=== PATIENT | male | born 1945 | race Caucasian/White ===

== ENCOUNTER 2020-07-08 22:29 | Inpatient (IN) | payer OTHER ==
[~2020-07-08] VITALS: Ht 177.8 cm; Wt 76.7 kg
[2020-07-08] MEDS ORDERED: OLANZAPINE 10 MG VIAL IM ONE ×2 (22:41→22:45)
[2020-07-08] MEDS ORDERED: DUTA0.5C PO (22:49)
[2020-07-08] MEDS ORDERED: ALFU10TA10 PO (22:49)
--- NOTE | 2020-07-08 23:23 | NUR ---
report given to MAGDY weber
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
[2020-07-08] MEDS ORDERED: BLOOD SUGAR DIAGNOSTIC 1 EACH STRIP VI ONE (23:45)
[2020-07-08] MEDS ORDERED: MAGNESIUM HYDROXIDE 30 ML LIQUID UDC PO PRN (23:45)
[2020-07-08] MEDS ORDERED: MAG HYDROX/AL HYDROX/SIMETH 30 ML LIQUID UDC PO PRN (23:45)
--- NOTE | 2020-07-08 23:45 | NUR ---
Pt. admitted to [facility] Room 140A , under care of Dr. Lees/[employer] Belongs List completed. All belongings with pt A/Ox1. in stable condition no s/s of distress transported via gurney
[2020-07-08] MEDS: TEMAZEPAM 7.5 MG CAPSULE PO PRN (23:54)
--- NOTE | 2020-07-09 00:45 | NUR ---
PATIENT NOTED RESTLESS, FIDGETING, CONSTANTLY MOVING IN HIS BED AND UNABLE TO FALL ASLEEP. ATIVAN 1MG PO PRN WAS OFFERED BUT PT REFUSED. WILL CONTINUE TO MONITOR. Addendum: 07/10/20 at 0300 by MIKALA BARNETT RN WRONG TIME. PLEASE DISREGARD NOTE.
[2020-07-09] MEDS: LORAZEPAM 1 MG TABLET PO PRN ×3 (02:04→14:16)
[2020-07-09 07:30] VITALS: BP 139/87
--- NOTE | 2020-07-09 07:45 | NUR ---
Patient received by the nurse's station sitting on a anne-chair, No acute distress noted. Patient is AAO x 1, verbal but speech is unclear. Patient is calm at this time. Vital signs stable and will continue with care.
[2020-07-09 07:58] LABS: BILIRUBIN,TOTAL 0.9 mg/dL (0.2-1.0); CREATININE 1.2 mg/dL (0.6-1.3); POTASSIUM 4.2 mmol/L (3.5-5.1); TOTAL PROTEIN, SERUM 7.8 g/dL (6.4-8.2)
--- NOTE | 2020-07-09 08:00 | NUR ---
Patient noted with a skin tear on left arm and open to air. Patient also with dressing in place on right arm. will continue to care.
--- NOTE | 2020-07-09 09:40 | NUR ---
Patient noted very restless, fidgety, trying to get out of anne-chair and hitting and trying to get rid of table. Ativan 1mg 1 tab PO administered as ordered and tolerated well.
--- NOTE | 2020-07-09 10:30 | NUR ---
Patient sitting on anne-chair calm and in the activity room at this time. Patient unable to participate but attends activities.
[2020-07-09] MEDS ORDERED: SULF1TAB48 PO (11:41)
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
[2020-07-09 16:00] VITALS: BP 131/81
--- NOTE | 2020-07-09 18:50 | NUR ---
Left hand cleansed with NS pat dry and covered with dressing. will continue with care.
--- NOTE | 2020-07-09 20:00 | NUR ---
Received patient in the hallway sitting in a anne chair. He is noted confused, fidgeting, unable to have a meaningful conversation with this sports book writer. he is compliant with medication regiment at this time. V/S stable. Safety and fall precautions in place. will continue to monitor.
[2020-07-09] MEDS: risperiDONE 0.5 MG TABLET PO SCH (20:17)
[2020-07-09] MEDS: SULFAMETH/TRIMETH 800/160 MG TABLET PO SCH (20:17)
[2020-07-09] MEDS: RIVASTIGMINE TARTRATE 1.5 MG CAPSULE PO SCH (20:17)
[2020-07-09] MEDS: DUTASTERIDE 0.5 MG CAPSULE PO SCH (20:18)
[2020-07-09] MEDS: ALFUZOSIN HCL 10 MG TAB.SR.24H PO SCH (20:18)
[2020-07-09 20:21] VITALS: BP 127/80
[2020-07-09] MEDS: TEMAZEPAM 7.5 MG CAPSULE PO PRN (22:29)
--- NOTE | 2020-07-09 22:30 | NUR ---
Patient noted restless, fidgeting, taking his gown off and unable to fall asleep. Temazepam 7.5mg PO PRN was given. will continue to monitor.
[2020-07-10] MEDS: LORAZEPAM 1 MG TABLET PO PRN ×2 (00:11→12:14)
--- NOTE | 2020-07-10 00:45 | NUR ---
PATIENT NOTED RESTLESS, FIDGETING, CONSTANTLY MOVING IN HIS BED AND UNABLE TO FALL ASLEEP. ATIVAN 1MG PO PRN WAS OFFERED BUT PT REFUSED. WILL CONTINUE TO MONITOR.
--- NOTE | 2020-07-10 07:01 | NUR ---
patient slept for approx. 3.30 hrs through the night. He is noted less combative, less fidgeting, less irritable at this time. will continue to monitor.
[2020-07-10 07:30] VITALS: BP 99/59
--- NOTE | 2020-07-10 08:00 | NUR ---
Patient received by the nurse's station sitting on a anne-chair, NO acute distress noted. Calm at this time. Vital signs stable for patient. Safety measures in place and will continue with care.
[2020-07-10] MEDS: DIVALPROEX 250 MG TABLET.DR PO SCH ×3 (08:31→13:38)
[2020-07-10] MEDS: SULFAMETH/TRIMETH 800/160 MG TABLET PO SCH ×2 (08:31→20:11)
[2020-07-10] MEDS: RIVASTIGMINE TARTRATE 1.5 MG CAPSULE PO SCH ×2 (08:31→20:11)
[2020-07-10] MEDS: risperiDONE 0.5 MG TABLET PO SCH ×2 (08:31→20:11)
--- NOTE | 2020-07-10 10:10 | NUR ---
Patient was able to take all due morning medications crushed with pudding. Patient able to express feelings at times but very confused with fragmented thoughts. patient also noted being fidgety at times and uncontrolled movements of the hands. Patient calling on 's name. Called patient's and patient was able to talk with . Monitored closely. Patient also attended group therapy and activities but with minimal participation. Safety measures in place and will continue with care.
--- NOTE | 2020-07-10 12:30 | NUR ---
Patient very fidgety unable to feed lunch at this time; patient noted being very restless, anxious and moving hands everywhere uncontrollably. Patient also noted with delusional thoughts stating "my is here". Ativan 1 mg PO q 4HRS PRN administered and tolerated well. Safety measures in place and will continue to monitor.
--- NOTE | 2020-07-10 13:33 | NUR ---
Patient still very restless moving anne-chair on the hallway and trying to get up. Patient very confused and with delusional thoughts. Patient monitored closely and reoriented to situation. Will continue with care.
--- NOTE | 2020-07-10 13:52 | NUR ---
Patient refused 1PM Depakote order. Patient very fidgety and unable to administer medication; patient also pushing meds away while trying to administer. Will continue with care.
[2020-07-10 16:00] VITALS: BP 117/64
[2020-07-10] MEDS: DIVALPROEX SPRINKLE 125 MG CAP.SPRINK PO SCH ×2 (17:00→20:11)
--- NOTE | 2020-07-10 18:20 | NUR ---
Patient is calm and sleeping at this time, NO acute distress. will continue with care.
[2020-07-10] MEDS: DUTASTERIDE 0.5 MG CAPSULE PO SCH (20:10)
[2020-07-10] MEDS: ALFUZOSIN HCL 10 MG TAB.SR.24H PO SCH (20:11)
[2020-07-10 20:21] VITALS: BP 134/85
[2020-07-10] MEDS: TEMAZEPAM 7.5 MG CAPSULE PO PRN (22:23)
[2020-07-11 07:30] VITALS: BP 100/62
--- NOTE | 2020-07-11 09:15 | NUR ---
LAURA Initial Discharge Plan: Patient currently lives at home [address] [place] [address], lives with , Caroline ([phone]). Patient will return back home when ready for discharge. LAURA called patient's at this time, however unable to reach and left a voicemail for a return call. LAURA will continue to work with patient, family, and MD to ensure a safe and proper discharge plan.
--- NOTE | 2020-07-11 09:16 | NUR ---
SW Family Contact: SW attempted to call patient's , Caroline ([phone]), unable to reach at this time and left a voicemail for a return call to discuss treatment and discharge plan.
[2020-07-11] MEDS: SULFAMETH/TRIMETH 800/160 MG TABLET PO SCH ×2 (10:48→20:37)
[2020-07-11] MEDS: DIVALPROEX SPRINKLE 125 MG CAP.SPRINK PO SCH ×3 (10:48→20:37)
[2020-07-11] MEDS: risperiDONE 0.5 MG TABLET PO SCH ×2 (10:48→20:37)
[2020-07-11] MEDS: RIVASTIGMINE TARTRATE 1.5 MG CAPSULE PO SCH ×2 (10:48→20:37)
[2020-07-11] MEDS: Z GUARD REMEDY PASTE 57 GM TUBE TOP SCH ×2 (10:58→20:37)
--- NOTE | 2020-07-11 13:59 | NUR ---
Patient is sitting in chair in hallway. He is anxious, restless, and refusing care from staff. Patient attempts to swat at staff when they get near him. Patient was compliant with medications, no adverse reaction noted. Patient is seen speaking to unknown others and performing waving hand gestures in the air. He frequently calls out for his and speaks to her despite the fact that she is not physically present. Patient is unable to participate in meaningful conversation with staff. He requires frequent redirection and reality orientation. Impulse control reinforced multiple times.
[2020-07-11 16:00] VITALS: BP 138/72
--- NOTE | 2020-07-11 16:51 | NUR ---
This lead technical writer spoke with patient's , Caroline. Patient's is concerned over the patient "being too drowsy and not talking like himself." stated that this is not patient's baseline communication or behavior, that at home he is "a normal person" and can have a logical conversation. Patient's stated that he has had Alzheimer's disease for 6 years, but the patient decided not to take medication because "it will only prolong his life by 6 months." Patient's states that the patient self medicates at home with medical marijuana edibles (about 30 mg daily) to help with his behavior. Patient's stated that she does not like that he is receiving the current medications of Depakote Sprinkles and Risperdal, and that she does not want him to be receiving Ativan. She stated that she had hoped he would get "something to take the edge off the " but that these medications are too much. Patient's also stated that after discharge, she plans to take the patient to his primary care physician to revise his discharge medication list. Patient's was educated about Depakote and Risperdal, doses, indications, and potential adverse reactions. She was advised not to suddenly stop taking the medication without the oversight and recommendation of a physician due to potential negative side effects.
[2020-07-11 20:00] VITALS: BP 118/66
[2020-07-11] MEDS: DUTASTERIDE 0.5 MG CAPSULE PO SCH (20:36)
[2020-07-11] MEDS: ALFUZOSIN HCL 10 MG TAB.SR.24H PO SCH (20:37)
[2020-07-11] MEDS: TEMAZEPAM 7.5 MG CAPSULE PO PRN (21:28)
--- NOTE | 2020-07-12 06:17 | NUR ---
Patient was confused , forgetful and difficult to have conversation with last night. Incontinent of urine and unsteady. This am, the patient was more talkative and was able to answer simple yes and no questions and said "Thank You". Assisted patient to bathroom and ambulated patient with caution. Patient needs help to eat and drink.Food and fluids provided to patient. Monitoring for safety. No distress at this time.
[2020-07-12 07:30] VITALS: BP 103/73
[2020-07-12] MEDS: RIVASTIGMINE TARTRATE 1.5 MG CAPSULE PO SCH ×2 (08:06→20:17)
[2020-07-12] MEDS: DIVALPROEX SPRINKLE 125 MG CAP.SPRINK PO SCH ×3 (08:06→20:18)
[2020-07-12] MEDS: SULFAMETH/TRIMETH 800/160 MG TABLET PO SCH ×2 (08:06→20:17)
[2020-07-12] MEDS: risperiDONE 0.5 MG TABLET PO SCH ×2 (08:06→20:17)
[2020-07-12] MEDS: Z GUARD REMEDY PASTE 57 GM TUBE TOP SCH ×2 (09:39→20:18)
--- NOTE | 2020-07-12 09:42 | NUR ---
Firearms Report: Preboarder completed and submitted a [employer] firearms report for 5250 grave disability certification. A copy of report has been placed in patient chart.
[2020-07-12] MEDS: ACETAMINOPHEN 325 MG TABLET PO PRN (12:38)
[2020-07-12] MEDS: LORAZEPAM 1 MG TABLET PO PRN (12:38)
--- NOTE | 2020-07-12 14:20 | NUR ---
LAURA Family Contact: SW spoke with patient's , Caroline ([phone]) regarding patient's discharge and treatment plan. Caroline stated that she wants the patient back home when he is ready for discharge and will pick him up at discharge. Caroline expressed some concerns about the patient "does not have a psychotic illness". This journalists and other writers educated Caroline about the patient having Alzheimer's and behavior issues. Caroline provided this journalists and other writers with the patient's primary doctor, Dr. Kyrie Quesada [address] [place] [id number] ([phone]).
[2020-07-12 16:00] VITALS: BP 121/63
--- NOTE | 2020-07-12 18:00 | NUR ---
Received patient up to Paige-chair ,confuse and disoriented , agitated and restless Ativan 1mg as PRN given.total care to all ADLS.assisted to go to restroom ,keep skin dry and clean at all time.
[2020-07-12] MEDS: ALFUZOSIN HCL 10 MG TAB.SR.24H PO SCH (20:17)
[2020-07-12] MEDS: DUTASTERIDE 0.5 MG CAPSULE PO SCH (20:17)
[2020-07-12 20:37] VITALS: BP 145/74
[2020-07-12] MEDS: TEMAZEPAM 7.5 MG CAPSULE PO PRN (21:52)
--- NOTE | 2020-07-13 04:22 | NUR ---
GPS/ Pt received in ervin chair, Pt is still very confuse and unable to make any need known. Very poor insight and not able to converse with staffs. Routine medications given as order. By 2149 pt was trying to get out of chair with increase activity and restless. PRN sleeping aid given and monitor. At this time pt asleep with even breathing. Will continue close monitor and kept safe.
[2020-07-13 07:30] VITALS: BP 119/69
[2020-07-13] MEDS: SULFAMETH/TRIMETH 800/160 MG TABLET PO SCH ×2 (08:47→20:19)
[2020-07-13] MEDS: DIVALPROEX SPRINKLE 125 MG CAP.SPRINK PO SCH ×3 (08:47→20:19)
[2020-07-13] MEDS: risperiDONE 0.5 MG TABLET PO SCH ×2 (08:48→20:19)
[2020-07-13] MEDS: RIVASTIGMINE TARTRATE 1.5 MG CAPSULE PO SCH ×2 (08:48→20:20)
[2020-07-13] MEDS: Z GUARD REMEDY PASTE 57 GM TUBE TOP SCH ×2 (09:20→20:31)
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
[2020-07-13] MEDS: LORAZEPAM 1 MG TABLET PO PRN (14:50)
[2020-07-13 16:00] VITALS: BP 121/67
[2020-07-13] MEDS: ALFUZOSIN HCL 10 MG TAB.SR.24H PO SCH (20:19)
[2020-07-13] MEDS: DUTASTERIDE 0.5 MG CAPSULE PO SCH (20:20)
[2020-07-13 21:51] VITALS: BP 111/63
--- NOTE | 2020-07-13 23:00 | NUR ---
Patient noted restless, fidgeting, unable to fall asleep. temazepam 7.5mg PO PRN was given. will continue to monitor.
[2020-07-13] MEDS: TEMAZEPAM 7.5 MG CAPSULE PO PRN (23:05)
[2020-07-14 07:30] VITALS: BP 124/60
[2020-07-14] MEDS: DIVALPROEX SPRINKLE 125 MG CAP.SPRINK PO SCH ×3 (09:56→20:02)
[2020-07-14] MEDS: RIVASTIGMINE TARTRATE 1.5 MG CAPSULE PO SCH ×2 (09:56→20:01)
[2020-07-14] MEDS: SULFAMETH/TRIMETH 800/160 MG TABLET PO SCH (09:56)
[2020-07-14] MEDS: risperiDONE 0.5 MG TABLET PO SCH ×2 (09:56→20:01)
--- NOTE | 2020-07-14 10:07 | NUR ---
LAURA UR Note: Authorization #[id number] LAURA spoke with Sarah Alvarado case management specialist at [facility] ([phone]) who requested this senior copywriter to provide clinical information on her confidential voicemail. This senior copywriter left clinical updated information on Sarah Alvarado's voicemail and is waiting for a call back after she reviews for continued authorization.
[2020-07-14] MEDS: Z GUARD REMEDY PASTE 57 GM TUBE TOP SCH ×2 (10:17→20:02)
--- NOTE | 2020-07-14 11:41 | NUR ---
Gps/Entry Engineer- Remains up on his anne-chair by the Nurses station, monitoring his needs, prompted to take his routine am meds. , instructed to keep his eye open when intercting with staff. Monitored safety
--- NOTE | 2020-07-14 11:52 | NUR ---
SW Discharge Planning: This health underwriter called the following psychiatrists for outpatient mental health services: Dr. Menjivar [facility] [place] [address] ([phone]) unable to reach. Dr. Iverson Federico [address] [place] [address] ([phone]), not accepting new patient's. Dr. Kwabena Anaya [address] [facility] [address] [place] [address] ([phone]), not accepting new patient's. [facility] ([phone]), not accepting [facility] Insurance.
--- NOTE | 2020-07-14 12:17 | NUR ---
LAURA UR Note: Authorization #[id number] LAURA spoke with Sarah Alvarado case management social worker at [facility] ([phone]) who reviewed the clinicals sent earlier and stated that the patient is authorized for further treatment in the hospital and review due on Saturday07/18/2020.
--- NOTE | 2020-07-14 12:45 | NUR ---
LAURA Coordination of Care: LAURA called and left a voicemail to [facility] Discharge Planning ([phone]) and requested a list of outpatient psychiatrists.
[2020-07-14] MEDS: LORAZEPAM 1 MG TABLET PO PRN ×2 (13:00→23:09)
[2020-07-14 16:00] VITALS: BP 112/72
--- NOTE | 2020-07-14 17:36 | NUR ---
Gps/Industrial Organization Manager- Patient is constipated, prune juices was offered today, MOM 30 ml was also given, toileted w/ poor results, fluids offered.
[2020-07-14 20:00] VITALS: BP 114/68
--- NOTE | 2020-07-14 20:00 | NUR ---
Received patient in the hallway, he is sitting in a yessy chair closed to the nursing station: patient is noted awake. continue confused, disorganized speech. pt is unable to have a meaningful conversation with this comic book writer. Mood is irritable. affect is flat. V/S stable. pt was given PO fluids and snacks. safety and fall precaution in place. will continue to monitor.
[2020-07-14] MEDS: ALFUZOSIN HCL 10 MG TAB.SR.24H PO SCH (20:01)
[2020-07-14] MEDS: DUTASTERIDE 0.5 MG CAPSULE PO SCH (20:01)
[2020-07-14] MEDS: TEMAZEPAM 7.5 MG CAPSULE PO PRN (21:13)
[2020-07-14] MEDS: SIMVASTATIN 10 MG TABLET PO SCH (21:13)
[2020-07-15 07:30] VITALS: BP 121/59
[2020-07-15] MEDS: RIVASTIGMINE TARTRATE 1.5 MG CAPSULE PO SCH ×2 (08:59→20:10)
[2020-07-15] MEDS: risperiDONE 0.5 MG TABLET PO SCH ×2 (08:59→20:10)
[2020-07-15] MEDS: DIVALPROEX SPRINKLE 125 MG CAP.SPRINK PO SCH ×3 (08:59→20:10)
[2020-07-15] MEDS: Z GUARD REMEDY PASTE 57 GM TUBE TOP SCH ×2 (09:00→20:10)
[2020-07-15 10:05] LABS: BASOPHILS % (AUTO) 0.4 % (0.0-2.0); EOSINOPHILS # (AUTO) 0.2 K/uL (0.0-0.7); EOSINOPHILS % (AUTO) 3.2 % (0.0-7.0); HEMATOCRIT 39.3 % (36.7-47.1); HEMOGLOBIN 13.3 g/dL (12.5-16.3); LYMPHOCYTES # (AUTO) 1.2 K/uL (20.0-40.0); LYMPHOCYTES % (AUTO) 17.4 % (20.5-51.5); MEAN CORPUSCULAR HGB CONC 34 g/dL (32.5-36.3); MEAN CORPUSCULAR VOLUME 91.5 fL (73.0-96.2); MONOCYTES # (AUTO) 0.8 K/uL (2.0-10.0); MONOCYTES % (AUTO) 11.1 % (0.0-11.0); NEUTROPHILS # (AUTO) 4.8 K/uL (1.8-8.9); NEUTROPHILS % (AUTO) 67.9 % (38.5-71.5); PLATELET COUNT (AUTO) 159 K/uL (152-348); WHITE BLOOD COUNT (AUTO) 7.1 K/uL (3.6-10.2)
[2020-07-15 10:06] LABS: ALANINE AMINOTRANSFERASE 42 U/L (16-63); ALKALINE PHOSPHATASE 53 U/L (50-136); ASPARTATE AMINOTRANSFERASE 42 U/L (15-37); BILIRUBIN,TOTAL 0.9 mg/dL (0.2-1.0); CARBON DIOXIDE 27 mmol/L (21-32); CHLORIDE 109 mmol/L (98-107); CREATININE 1.4 mg/dL (0.6-1.3); GLUCOSE 113 mg/dL (74-106); MAGNESIUM 2.6 mg/dL (1.8-2.4); PHOSPHOROUS 3.6 mg/dL (2.5-4.9); POTASSIUM 4.2 mmol/L (3.5-5.1); TOTAL PROTEIN, SERUM 6.9 g/dL (6.4-8.2); UREA NITROGEN, BLOOD 41 mg/dL (7-18); VALPROIC ACID 51 ug/mL (50-100)
--- NOTE | 2020-07-15 10:30 | NUR ---
Gps/Quality Control Supervisor- Gets restless, fidgety , climbed of of bed. Kept patient on his anne-chair by the Nurses station for safety. Confused, disoriented, safety emphasized. Addendum: 07/15/20 at 1246 by SHEMAR DANG LVN Error in charting wrong patient
[2020-07-15] MEDS: LORAZEPAM 1 MG TABLET PO PRN ×2 (12:07→21:07)
--- NOTE | 2020-07-15 12:47 | NUR ---
Gps/Feli- Ruthie Seay SW -Adult Protective Services called, from [facility] ,wants to know discharge plan and progress of the patient , per 's request , informed no set discharge at this time.
--- NOTE | 2020-07-15 14:46 | NUR ---
Gps/Hat Stock Laminating Machine Operator- Caroline() called wants to know progress pf the patient, asking about his behavior informed was given ativan 1 mg po. this pm, r/t restlessness, disrobing, banging table , per " i dont want anybody giving him ativan , its been written all over not to give" . Informed will have Psychiatrist talk to her.
[2020-07-15 16:01] VITALS: BP 120/76
--- NOTE | 2020-07-15 16:06 | NUR ---
LAURA Family Contact: At 1:00pm SW spoke with pts , Caroline ([phone]) regarding outpatient psychiatric services. Caroline initially refused and stated that the patient will follow up with his primary care physician [place] [address] ([phone]). This comic writer educated Caroline regarding the importance of the patient seeing a psychiatrist in addition to his primary physician and she seemed to understand. At 3:30pm SW received a call back from pt's , Caroline who stated that she spoke with Dr. Quesada who agreed to manage the patient's psychotropic medications, and also advised that [facility] has a behavioral health portion, which would be her preference for the patients outpatient treatment. This comic writer called [facility] [address] [place] [address] ([phone]), and spoke with Candie, who stated that the patient would need to be seen by his primary physician and he would refer the pt for psychiatry and pt. would be assigned a psychiatrist. This comic writer informed Caroline of this process and she was agreeable and stated she "feels more comfortable" with this rather than a psychiatrist not associated with Dr. Quesada's clinic. LAURA made the next available appointment for the patient to follow up with Dr. Quesada ([phone]) on July 26, 2020 at 10am and requested the referral for psychiatry upon follow up.
[2020-07-15 20:00] VITALS: BP 124/75
[2020-07-15] MEDS: DUTASTERIDE 0.5 MG CAPSULE PO SCH (20:09)
[2020-07-15] MEDS: SIMVASTATIN 10 MG TABLET PO SCH (20:10)
[2020-07-15] MEDS: ALFUZOSIN HCL 10 MG TAB.SR.24H PO SCH (20:10)
[2020-07-15] MEDS: TEMAZEPAM 7.5 MG CAPSULE PO PRN (22:56)
--- NOTE | 2020-07-16 03:53 | NUR ---
GPS/ Pt was received sitting by nursing station in [facility]. Pt is disorganized, confuse and poor insight with no recognition to place, person and time. Pt was restless, unable to communicate clearly and very incoherent. Difficulty sitting down, not aware of need to toilet on drink. Pt constantly trying to get out of the chair or bed. Routine medication given as order with no effect towards behavior. PRN Ativan given at 2107 with no effect. Pt was transfer to bed but unable to stay, and pt was removing everything around him. None pharmacological intervention was not effective to keep pt calm. PRN sleeping aid given with some effect noted. Pt was made clean and dry, covered with blanket and continue monitoring.
[2020-07-16] MEDS: LORAZEPAM 1 MG TABLET PO PRN ×3 (04:46→22:51)
[2020-07-16 07:30] VITALS: BP 135/82
[2020-07-16] MEDS: RIVASTIGMINE TARTRATE 1.5 MG CAPSULE PO SCH ×2 (08:21→20:10)
[2020-07-16] MEDS: Z GUARD REMEDY PASTE 57 GM TUBE TOP SCH ×2 (09:02→20:27)
[2020-07-16] MEDS: DIVALPROEX SPRINKLE 125 MG CAP.SPRINK PO SCH ×3 (10:11→20:10)
[2020-07-16] MEDS: risperiDONE 0.5 MG TABLET PO SCH ×2 (10:11→20:10)
--- NOTE | 2020-07-16 10:23 | NUR ---
Gps/Carpenter Mold- Was taken to the patio with the group of patients.Patient had episodes of crying spells, occ. noted banging his pap tray. Offered fluids/juices, assisted with his drinks, needed verbal cueing in sequencing his tasks.
--- NOTE | 2020-07-16 10:46 | NUR ---
Gps/Trim Machine Operator- Ambulated to the bathroom with 2 staff assist. voide and had formed mod. stool, assisted with hygiene. Assisted patient to bed, with bed alarm on, sie rails up.Monitor safety.
--- NOTE | 2020-07-16 14:30 | NUR ---
Gps/Inbound Sales Representative- Patient stayed in bed , was able to take a naps at intervals, bed alarm on, tends to climed out of bed , unsteady gait noted.
--- NOTE | 2020-07-16 15:30 | NUR ---
Gps/Asset Protection Professional- Poor skin turgor , forearms very dry, patches of small scabs noted.. Patient tends to get agitated hitting the lap tray/table hard, , and at times used his fingernails to scratch the tray.. Mumbles , with crying spells, noted, no tears . Unable to make his needs known , words are incoherent and confused..
[2020-07-16 16:00] VITALS: BP 131/73
[2020-07-16] MEDS: ACETAMINOPHEN 325 MG TABLET PO PRN (19:01)
[2020-07-16] MEDS: DUTASTERIDE 0.5 MG CAPSULE PO SCH (20:10)
[2020-07-16] MEDS: ALFUZOSIN HCL 10 MG TAB.SR.24H PO SCH (20:10)
[2020-07-16] MEDS: SIMVASTATIN 10 MG TABLET PO SCH (20:10)
[2020-07-16 20:37] VITALS: BP 121/61
[2020-07-16] MEDS: TEMAZEPAM 7.5 MG CAPSULE PO PRN (21:23)
--- NOTE | 2020-07-17 04:43 | NUR ---
GPS/Rn. Pt was received in bed awake and restless, constantly trying to get out of bed. Pt was also noted with little scratches on his arms and small blood spots noted on bedsheet. Pt was banging bedside table and shaking side rails and moaning. Routine medications was administered as order. Pt was unable to rest with routine and PRN Restoril given. Pt was still very active and striping cloths off, moaning and crying. Not able to sleep, kept clean and change bed sheets, none medical intervention was not effective. Ativan was given and noted some effect. Pt still not able to rest for a full hour without waking up and moaning, crying and restless. Continue caring and keeping pt safe with pillows and sheets on bed side to prevent banging or injury to skin or bruising. Will endorse to incoming staffs to possible notify MD in am per increase behavior at night.
--- NOTE | 2020-07-17 06:56 | NUR ---
Pt slept a total of about 3.5 to 4hrs during shift, pt was restless and awake frequently and moan, cry and banging on the bed and side rail. Pt was kept clean and dry z-guard applied and continue monitor.
[2020-07-17 07:30] VITALS: BP 118/96
[2020-07-17] MEDS: DIVALPROEX SPRINKLE 125 MG CAP.SPRINK PO SCH ×3 (08:21→20:50)
[2020-07-17] MEDS: risperiDONE 0.5 MG TABLET PO SCH (08:21)
[2020-07-17] MEDS: RIVASTIGMINE TARTRATE 1.5 MG CAPSULE PO SCH ×2 (08:21→20:50)
[2020-07-17] MEDS: Z GUARD REMEDY PASTE 57 GM TUBE TOP SCH ×2 (08:41→20:51)
[2020-07-17] MEDS: ACETAMINOPHEN 325 MG TABLET PO PRN ×3 (09:46→23:47)
[2020-07-17] MEDS: LORAZEPAM 1 MG TABLET PO PRN ×3 (10:13→19:44)
--- NOTE | 2020-07-17 10:45 | NUR ---
Gps/Legal Coordinator- Patient was able to talked to his Alyssa, patient confused and incoherent speech, , lstening to her voice. Kept up on his chair , by the Nurses station , monitored closely for safety
[2020-07-17 15:28] VITALS: BP 107/62
--- NOTE | 2020-07-17 17:48 | NUR ---
Gps/Industrial X Ray Operator- Toileted at a regular intervals. Two staff needed to assist patient r/t unpredictable behavior. Kept up on his anne-chair by the Nurses station for safety. Patient had poor safety awareness, unsteady gait, confused. Needed assist with all meals/feeder, fluids offered, encouraged.
--- NOTE | 2020-07-17 20:00 | NUR ---
Received patient in the hallway sitting in a palmer chair. He is noted confused. Pt. is restless, fidgeting and anxious. Ativan 1mg po prn was given at approx. 1945. mood is irritable, affect is flat. Pt is unable to have a meaningful conversation with this telegraphic typewriter mechanic. V/S are stable. Pt was given snacks and PO fluids. Safety and fall precaution in place. will continue to monitor
[2020-07-17 20:42] VITALS: BP 129/78
[2020-07-17] MEDS: ALFUZOSIN HCL 10 MG TAB.SR.24H PO SCH (20:50)
[2020-07-17] MEDS: risperiDONE 1 MG TABLET PO SCH (20:51)
[2020-07-17] MEDS: SIMVASTATIN 10 MG TABLET PO SCH (20:51)
[2020-07-17] MEDS: DUTASTERIDE 0.5 MG CAPSULE PO SCH (20:51)
--- NOTE | 2020-07-17 22:30 | NUR ---
Pt is sleeping comfortable in his bed. will continue to monitor.
[2020-07-17] MEDS: TEMAZEPAM 7.5 MG CAPSULE PO PRN (23:47)
--- NOTE | 2020-07-17 23:50 | NUR ---
Patient noted restless, fidgeting and anxious, he is unable to fall sleep. Temazepam 7.5mg PO PRN was given for insomnia. Will continue to monitor.
--- NOTE | 2020-07-18 01:00 | NUR ---
pt noted sleeping comfortable in his bed. will continue to monitor.
[2020-07-18] MEDS: LORAZEPAM 1 MG TABLET PO PRN ×4 (03:53→17:10)
--- NOTE | 2020-07-18 06:56 | NUR ---
Patient slept for approx. 3.30 hrs through the night. He continue restless intermittently. Shower was given as well. he continue confused and disorganized. will continue to monitor.
[2020-07-18 07:30] VITALS: BP 103/50
[2020-07-18] MEDS: risperiDONE 1 MG TABLET PO SCH ×2 (08:16→20:43)
[2020-07-18] MEDS: DIVALPROEX SPRINKLE 125 MG CAP.SPRINK PO SCH ×3 (08:16→20:43)
[2020-07-18] MEDS: RIVASTIGMINE TARTRATE 1.5 MG CAPSULE PO SCH ×2 (08:16→20:43)
[2020-07-18] MEDS: Z GUARD REMEDY PASTE 57 GM TUBE TOP SCH ×2 (08:17→21:01)
--- NOTE | 2020-07-18 09:43 | NUR ---
UR NOTE: Authorization # [id number] SW contacted [employer] telephonic case manager Sarah Alvarado ([phone]) and completed concurrent clinical review via voiceMayi [employer].
--- NOTE | 2020-07-18 15:10 | NUR ---
FAMILY CONTACT: LAURA received a call from patient's , Caroline ([phone]) requesting discharge information. LAURA informed her that pts insurance has authorized 4 more days with a review due on Saturday07/22/20 and that currently there was no discharge date for pt. SW provided with an update on pts behavior and transferred the call to the nurses station as had questions regarding the dosage and frequency of pts medications.
--- NOTE | 2020-07-18 15:39 | NUR ---
Gps/Rn: Received patient sitting in the anne-chair in stable condition. Patient bump hands on the table noted. Continue to move around in the chair. Patient ativan 1mg every 4 hours given with good effect. will continue monitor for safety.
[2020-07-18 15:45] VITALS: BP 135/83
[2020-07-18] MEDS: ENSURE WITH FIBER 237 ML LIQUID (CHOCOLATE) PO SCH (17:11)
[2020-07-18 20:00] VITALS: BP 139/80
[2020-07-18] MEDS: SIMVASTATIN 10 MG TABLET PO SCH (20:43)
[2020-07-18] MEDS: ACETAMINOPHEN 325 MG TABLET PO PRN (20:43)
[2020-07-18] MEDS: ALFUZOSIN HCL 10 MG TAB.SR.24H PO SCH (20:45)
[2020-07-18] MEDS: DUTASTERIDE 0.5 MG CAPSULE PO SCH (20:45)
[2020-07-18] MEDS: TEMAZEPAM 7.5 MG CAPSULE PO PRN (21:31)
[2020-07-19 07:30] VITALS: BP 93/62
[2020-07-19 08:20] LABS: BASOPHILS % (AUTO) 0.4 % (0.0-2.0); EOSINOPHILS # (AUTO) 0.1 K/uL (0.0-0.7); EOSINOPHILS % (AUTO) 0.6 % (0.0-7.0); HEMOGLOBIN 13.2 g/dL (12.5-16.3); LYMPHOCYTES # (AUTO) 1.8 K/uL (20.0-40.0); LYMPHOCYTES % (AUTO) 19.7 % (20.5-51.5); MEAN CORPUSCULAR HEMOGLOBIN 30.3 uug (23.8-33.4); MEAN CORPUSCULAR HGB CONC 33 g/dL (32.5-36.3); MEAN CORPUSCULAR VOLUME 91.8 fL (73.0-96.2); MONOCYTES % (AUTO) 11.2 % (0.0-11.0); NEUTROPHILS # (AUTO) 6.4 K/uL (1.8-8.9); NEUTROPHILS % (AUTO) 68.1 % (38.5-71.5); PLATELET COUNT (AUTO) 215 K/uL (152-348); RED BLOOD CELL COUNT(AUTO) 4.36 MIL/uL (4.06-5.63); WHITE BLOOD COUNT (AUTO) 9.3 K/uL (3.6-10.2)
[2020-07-19 08:28] LABS: ALANINE AMINOTRANSFERASE 55 U/L (16-63); ALKALINE PHOSPHATASE 59 U/L (50-136); ASPARTATE AMINOTRANSFERASE 43 U/L (15-37); BILIRUBIN,TOTAL 0.4 mg/dL (0.2-1.0); CARBON DIOXIDE 33 mmol/L (21-32); CHLORIDE 114 mmol/L (98-107); CREATININE 1.5 mg/dL (0.6-1.3); GLUCOSE 118 mg/dL (74-106); POTASSIUM 4.8 mmol/L (3.5-5.1); TOTAL PROTEIN, SERUM 7.3 g/dL (6.4-8.2); UREA NITROGEN, BLOOD 48 mg/dL (7-18)
[2020-07-19] MEDS: DIVALPROEX SPRINKLE 125 MG CAP.SPRINK PO SCH ×5 (08:28→20:19)
[2020-07-19] MEDS: risperiDONE 1 MG TABLET PO SCH ×4 (08:28→20:19)
[2020-07-19] MEDS: RIVASTIGMINE TARTRATE 1.5 MG CAPSULE PO SCH ×3 (08:28→12:31)
[2020-07-19] MEDS: Z GUARD REMEDY PASTE 57 GM TUBE TOP SCH ×2 (08:29→20:19)
[2020-07-19] MEDS: ENSURE WITH FIBER 237 ML LIQUID (CHOCOLATE) PO SCH ×4 (08:36→17:08)
--- NOTE | 2020-07-19 14:01 | NUR ---
FAMILY CONTACT: SW contacted patient's , Caroline ([phone]) to inform her of pts discharge for Saturday07/22/20. SW informed of pts current behaviors and level of functioning. SW stated that this is pts baseline behavior and therefore will no longer be meeting criteria for acute psychiatric hospitalization. SW informed that pt has required max assistance with PT and that pt has declined in the past 2 days with PT and pt requires assistance with ADL's. became frantic and stated that before being hospitalized pt was able to walk and eat on his own. SW provided education and encouraged to dis-enroll pt from HMO plan and enroll pt in [facility] Medicare. SW also stated that is it recommended for pt to be discharged to a SNF however, his insurance may not authorize. stated that she is not sure if she wants pt discharged to a SNF. stated that she wants PT for pt once he is home. SW stated she would contact pts insurance and request authorization for possible SNF placement or PT at home. agreed.
[2020-07-19] MEDS: LORAZEPAM 1 MG TABLET PO PRN ×2 (14:14→23:45)
--- NOTE | 2020-07-19 14:32 | NUR ---
UR NOTE: Authorization # [id number] LAURA contacted [employer] window caser Sarah Alvarado ([phone]) and left voicemail informing her of pts current level of functioning and pt needing total assistance with ADL's. LAURA requested authorization for SNF placement as pts is unable to provide level of care pt requires.
[2020-07-19 17:13] VITALS: BP 120/84
[2020-07-19 20:02] VITALS: BP 116/72
[2020-07-19] MEDS: DUTASTERIDE 0.5 MG CAPSULE PO SCH (20:17)
[2020-07-19] MEDS: ALFUZOSIN HCL 10 MG TAB.SR.24H PO SCH (20:19)
[2020-07-19] MEDS: SIMVASTATIN 10 MG TABLET PO SCH (20:19)
[2020-07-19] MEDS ORDERED: RIVASTIGMINE TARTRATE 1.5 MG CAPSULE PO ONE (21:00)
[2020-07-19] MEDS: ACETAMINOPHEN 325 MG TABLET PO PRN (22:30)
[2020-07-20 07:30] VITALS: BP 129/78
[2020-07-20] MEDS: ENSURE WITH FIBER 237 ML LIQUID (CHOCOLATE) PO SCH ×3 (09:00→16:03)
[2020-07-20] MEDS: DIVALPROEX SPRINKLE 125 MG CAP.SPRINK PO SCH ×3 (09:02→20:01)
[2020-07-20] MEDS: RIVASTIGMINE TARTRATE 3 MG CAPSULE PO SCH ×2 (09:02→16:02)
[2020-07-20] MEDS: risperiDONE 1 MG TABLET PO SCH ×2 (09:02→20:01)
[2020-07-20] MEDS: ACETAMINOPHEN 325 MG TABLET PO PRN (09:02)
[2020-07-20] MEDS: Z GUARD REMEDY PASTE 57 GM TUBE TOP SCH ×2 (09:03→20:01)
--- NOTE | 2020-07-20 12:29 | NUR ---
FAMILY CONTACT: SW received a call from patient's , Caroline ([phone]) stating that she refuses pt pick pt up on Saturday due to her not being able to care for pt at home and SW not having a discharge plan in place. states she financially cannot afford having a caregiver and states that she needs to speak to the medical team regarding pts sudden decline in functioning. believes that pt is too over medicated thus, why pt is unable to complete his ADL's without assistance. Pts friend Radha was also on the line and requested pt be placed on Hospice, SW explained that pt does not meet criteria for hospice as pt does not have a terminal illness and does not have a prognosis of 6 months or less. SW provided education and stated that pts sudden decline is due to his Dementia and change in environment. SW explained that pt no longer meets criteria for acute psychiatric hospitalization and explained that pts [facility] has only authorized hospitalization until Saturday07/22/20. demanded she receive a call from the hospitalist to discuss possible hospice and then hung up the phone. LAURA informed scrap charger of call and he will notify hospitalist of 's request to speak to him. Addendum: 07/20/20 at 1359 by CHAPIN SANCHEZ LAURA informed Social Relay Tester and a possible hospice evaluation will be requested from the medical team.
--- NOTE | 2020-07-20 13:46 | NUR ---
UR NOTE: Authorization # [id number] LAURA contacted [employer] mental health case manager Sarah Alvarado ([phone]) and left voicemail informing her of 's phone call refusing to pick pt up. LAURA requested a call back to discuss an appropriate discharge plan.
--- NOTE | 2020-07-20 14:02 | NUR ---
UR NOTE: Authorization # [id number] SW received a call from [facility] watch caser Sarah Alvarado ([phone]) stating that there is nothing more she can do and stated that if refuses to pick pt up that an APS report may need to be filed for abandonment. LAURA informed her that is requesting a hospice evaluation and Sarah stated that she is unable to provide authorization for that and stated that authorization needs to be requested with the medical group.
--- NOTE | 2020-07-20 14:09 | NUR ---
Clinical Social Work Note and Discharge Planning Spoke with , Caroline and her friend ([phone]) who is assisting with discharge. wants him to get Hospice evaluation for services at home. has found [facility] ( [phone]) who can provide Hospice with an order for Hospice from one of our MDs. Rohit CURRAN agreed to try to obtain this order from hospitalist. want durable medical equipment ordered including hospital bed. Advised her that we can order this if insurance authorizes it. is now minimizing patient's aggression prior to admission and wants to try to have him at home with caregiver. is planning on having patient picked up on Saturday. She will arrange [facility] transportation if his insurance does not cover an ambulance home. and [facility] were notified that they will be responsible for a continued stay if they do not pick pt. up on Saturday, his last authorized day at [facility]. They are planning for his return on Saturday. Juanita, assigned social work associate will facilitate discharge on Saturday.
--- NOTE | 2020-07-20 15:25 | NUR ---
UR NOTE: Authorization # [id number] SW contacted [employer] heel caser Sarah Christiano ([phone]) and left voicemail informing her of pts requests regarding ambulance transport and hospital bed authorization. SW requested a call back to coordinate discharge.
[2020-07-20 16:05] VITALS: BP 104/71
--- NOTE | 2020-07-20 16:13 | NUR ---
LAURA COORDINATION OF CARE: LAURA faxed clinicals to [employer]: Dr. Kyrie Quesada Address: [address] [place] [address] . LAURA also faxed hospice referral to Nancy with [facility] Address: [address] [address] Fax: [phone] for review.
--- NOTE | 2020-07-20 18:06 | NUR ---
PATIENT CONTINUES TO MOAN AND GROAN, HITTING SELF, TRIES TO REDIRECT, PATIENT ASSISTED WITH ADLS, ENSURE SAFETY AT ALL TIME NO DISTRESS AT THIS TIME
[2020-07-20] MEDS: LORAZEPAM 1 MG TABLET PO PRN (18:20)
--- NOTE | 2020-07-20 18:28 | NUR ---
PATIENT HITTING AND BANGING THE TABLE, SHOUTING AND RESTLESS, PRN MEDICATION GIVEN
[2020-07-20] MEDS: SIMVASTATIN 10 MG TABLET PO SCH (20:01)
[2020-07-20] MEDS: DUTASTERIDE 0.5 MG CAPSULE PO SCH (20:01)
[2020-07-20] MEDS: ALFUZOSIN HCL 10 MG TAB.SR.24H PO SCH (20:01)
[2020-07-20 20:09] VITALS: BP 118/70
[2020-07-20] MEDS: TEMAZEPAM 7.5 MG CAPSULE PO PRN (23:16)
--- NOTE | 2020-07-21 07:28 | NUR ---
patient slept for approx 3.45 hors through the night. continue restless. will continue to monitor.
[2020-07-21 07:30] VITALS: BP 119/61
--- NOTE | 2020-07-21 08:26 | NUR ---
UR NOTE: Authorization # [id number] LAURA received a call from [facility] medical case worker Sarah Alvarado ([phone]) stating that LAURA needed to call the outpatient pre certification line ([phone]) to request authorization for a hospital bed. Sarah also stated that she would submit request for ambulance transport but states it may not be approved. Sarah stated she would call LAURA with an update on this day.
[2020-07-21] MEDS: DIVALPROEX SPRINKLE 125 MG CAP.SPRINK PO SCH ×3 (08:53→21:36)
[2020-07-21] MEDS: RIVASTIGMINE TARTRATE 3 MG CAPSULE PO SCH ×2 (08:54→17:00)
[2020-07-21] MEDS: risperiDONE 1 MG TABLET PO SCH (08:54)
[2020-07-21] MEDS: ACETAMINOPHEN 325 MG TABLET PO PRN (08:54)
[2020-07-21] MEDS: ENSURE WITH FIBER 237 ML LIQUID (CHOCOLATE) PO SCH ×3 (09:00→17:00)
[2020-07-21] MEDS: Z GUARD REMEDY PASTE 57 GM TUBE TOP SCH ×2 (09:10→21:37)
--- NOTE | 2020-07-21 09:59 | NUR ---
LAURA COORDINATION OF CARE: LAURA contacted [facility] pre certification line ( ) and spoke with Flora who stated needs to call member services at ([phone]) and request an in network provider who can provide a hospital bed and then request a code for the bed from the provider to see if it will require prior authorization or if it will be covered.
--- NOTE | 2020-07-21 10:12 | NUR ---
FAMILY CONTACT: SW contacted patient's , Caroline ([phone]) and left a voicemail providing her with updated information. SW requested a callback.
--- NOTE | 2020-07-21 10:17 | NUR ---
LAURA COORDINATION OF CARE: SW received a call from Brittany at [facility] Address: [address], [place] [address] who confirmed molded goods spot picker for 11am tomorrow Saturday07/22/20, she also confirmed that the agency will be assisting with authorization for DME's.
--- NOTE | 2020-07-21 12:00 | NUR ---
Gps/Lumber Marker- Restless, scratching his lap tray with his fingernail, tried to pad lap tray. Stayed up in his anne-chair by the Nurses stations.
--- NOTE | 2020-07-21 13:56 | NUR ---
UR NOTE: Authorization # [id number] SW received a call from [facility] disability case manager Sarah Alvarado ([phone]) stating that authorization has been given for ambulance transport if needed. Authorization #: [id number]
--- NOTE | 2020-07-21 15:38 | NUR ---
DISCHARGE NOTE FOR Saturday07/22/20: Pt will be discharged at 11:00am via [facility] Transportation home [address] [place] [address]. Pts , Caroline [phone] has been notified and agrees with discharge plan. Pts mood is easily agitated with congruent affect. Pt is alert and oriented x1 to self and requires total assistance with ADL's. Pt remains confused, disorganized and disoriented due to Dementia. Pt will be referred to [facility] [facility] [address] [address], [place] [address] ([phone]) after being seen by his primary physician Dr. Quesada. Pt will follow up with Shotblast Equipment Operator: Dr. Kyrie Quesada at [address] [address] ([phone]) and has an appointment scheduled on July 26, 2020 at 10am. The multidisciplinary exit care form was done, printed, signed, and given to the patient. Addendum: 07/22/20 at 1342 by CHAPIN SANCHEZ SW PTS DISCHARGE WAS CANCELLED DUE TO ELEVATED BUN.
[2020-07-21 16:00] VITALS: BP 120/79
--- NOTE | 2020-07-21 18:00 | NUR ---
Gps/Convex Grinder Operator Patient is lethargic, to be fed for dinner, noted occ. coughing, instructed JAMES Segovia to stop feeding patient at this time. Good oral care was given, pm care provided, assisted to bed, repositioned, for comfort.
[2020-07-21 20:00] VITALS: BP 128/77
[2020-07-21] MEDS ORDERED: risperiDONE 1 MG TABLET PO SCH (21:00)
[2020-07-21] MEDS: SIMVASTATIN 10 MG TABLET PO SCH (21:36)
[2020-07-21] MEDS: ALFUZOSIN HCL 10 MG TAB.SR.24H PO SCH (21:36)
[2020-07-21] MEDS: DUTASTERIDE 0.5 MG CAPSULE PO SCH (21:36)
[2020-07-22] MEDS: TEMAZEPAM 7.5 MG CAPSULE PO PRN ×2 (00:45→22:08)
[2020-07-22 07:30] VITALS: BP 92/54
[2020-07-22 07:57] LABS: CARBON DIOXIDE 33 mmol/L (21-32); CHLORIDE 114 mmol/L (98-107); CREATININE 1.5 mg/dL (0.6-1.3); GLUCOSE 122 mg/dL (74-106); POTASSIUM 3.9 mmol/L (3.5-5.1); UREA NITROGEN, BLOOD 44 mg/dL (7-18)
[2020-07-22] MEDS ORDERED: IV NS 1000 ML 1,000 ML IV ONE (08:00)
[2020-07-22] MEDS ORDERED: CLONAZEPAM 0.5 MG TABLET PO SCH (09:00)
[2020-07-22] MEDS: ENSURE WITH FIBER 237 ML LIQUID (CHOCOLATE) PO SCH ×3 (09:00→17:59)
--- NOTE | 2020-07-22 09:26 | NUR ---
LAURA COORDINATION OF CARE: LAURA called Brittany at [facility] Address: [address], [place] [address] and informed her that the pt is not being discharged today and that we will need to postpone the transportation. LAURA was unable to inform her of when the pt will be ready.
--- NOTE | 2020-07-22 09:30 | NUR ---
UR NOTE: LAURA called [facility] case management director Sarah Christiano ([phone]) for Authorization # [id number] and left a voicemail that informed her that the MD did not feel that the pt is ready to be discharged today. LAURA left an updated clinical on her voicemail including the medication changes that were placed in effect today.
--- NOTE | 2020-07-22 09:54 | NUR ---
FAMILY CONTACT: SW contacted patient's , Caroline ([phone]), and informed her that the pt is not being discharged back home today. SW stated that a SW will keep her updated regarding the pts condition.
[2020-07-22] MEDS: RIVASTIGMINE TARTRATE 3 MG CAPSULE PO SCH ×2 (10:06→16:38)
[2020-07-22] MEDS: risperiDONE 2 MG TABLET PO SCH ×2 (10:06→20:10)
[2020-07-22] MEDS: CLONAZEPAM 0.5 MG TABLET PO SCH ×3 (10:06→16:38)
[2020-07-22] MEDS: DIVALPROEX SPRINKLE 125 MG CAP.SPRINK PO SCH ×3 (10:06→20:11)
--- NOTE | 2020-07-22 12:18 | NUR ---
UR NOTE: LAURA called [employer] heel caser Sarah Alvarado ([phone]) for Authorization # [id number] and left a voicemail providing her with updated clinical information.
--- NOTE | 2020-07-22 13:00 | NUR ---
Gps/Sheltered Workshop Executive Director- Tolerated bolus IVF of NS , saline lock to right wrist area secured intact. Patient gets restless, fidgety, tried to pull IV during IVF infusion. Assisted with his meals, occ. dry coughing during her meal. Instructed to double swallow. Gets restless and fidgety., remains confused, mumbles.
--- NOTE | 2020-07-22 13:45 | NUR ---
UR NOTE: Authorization # [id number] SW received a call from [facility] case resolution specialist Sarah Alvarado ([phone]) stating that pt has been authorized 3 days 07/23/20-07/25/20 with review due on Saturday07/25/20.
[2020-07-22] MEDS: Z GUARD REMEDY PASTE 57 GM TUBE TOP SCH ×2 (13:53→20:12)
--- NOTE | 2020-07-22 14:49 | NUR ---
LAURA COORDINATION OF CARE: LAURA called Brittany at [facility] Address: [address], [place] [address] to inform her pt will be discharged on Saturday07/25/20. She stated she will inform her intake department and will not know the time of picker/puller until Saturday.
--- NOTE | 2020-07-22 14:53 | NUR ---
FAMILY CONTACT: LAURA contacted patient's , Caroline ([phone]) to inform her pt will be discharged on Saturday07/25/20. states that she wants pt discharged sooner than Saturday and LAURA explained that MD wishes to observe pt over the weekend to ensure he is stable to return home. expressed disappointment as she stated she has not received a call from the hospitalist nor the psychiatrist to provide her with an update on pts status. LAURA informed her that LAURA will notify the psychiatrist.
[2020-07-22 16:00] VITALS: BP 120/64
[2020-07-22 20:01] VITALS: BP 117/71
[2020-07-22] MEDS: SIMVASTATIN 10 MG TABLET PO SCH (20:11)
[2020-07-22] MEDS: DUTASTERIDE 0.5 MG CAPSULE PO SCH (20:11)
[2020-07-22] MEDS: ALFUZOSIN HCL 10 MG TAB.SR.24H PO SCH (20:11)
[2020-07-23] VITALS (7 sets, daily range): BP systolic 96–129; BP diastolic 51–90
--- NOTE | 2020-07-23 04:44 | NUR ---
GPS: Pt was up in anne chair in hallway, confuse and unable to verbally interact coherently. Monitoring pt with s/p iv hydration from previous shift. No side effect noted, Pt still very confuse and banging on the table and striping everything off. Routine medications administered with no changes. Pt was transfer to bed but was not able to sleep and getting out of bed. None pharmacological intervention was not effective and PRN sleeping aid was administered at 2200. Pt was very restless s/p prn. Monitor with frequent assistant facility manager provided, pt at this time asleep. Kept skin clean and dry. .
[2020-07-23 07:40] LABS: CREATININE 1.3 mg/dL (0.6-1.3); POTASSIUM 4.1 mmol/L (3.5-5.1)
[2020-07-23] MEDS: DIVALPROEX SPRINKLE 125 MG CAP.SPRINK PO SCH ×3 (08:52→21:00)
[2020-07-23] MEDS: CLONAZEPAM 0.5 MG TABLET PO SCH ×3 (08:52→16:37)
[2020-07-23] MEDS: ACETAMINOPHEN 325 MG TABLET PO PRN (08:52)
[2020-07-23] MEDS: RIVASTIGMINE TARTRATE 3 MG CAPSULE PO SCH ×2 (08:52→16:37)
[2020-07-23] MEDS: risperiDONE 2 MG TABLET PO SCH ×2 (08:53→21:00)
[2020-07-23] MEDS: Z GUARD REMEDY PASTE 57 GM TUBE TOP SCH ×2 (08:53→21:00)
[2020-07-23] MEDS: ENSURE WITH FIBER 237 ML LIQUID (CHOCOLATE) PO SCH ×3 (08:54→16:37)
[2020-07-23] MEDS ORDERED: IV NS 1000 ML 1,000 ML IV ONE (09:00)
--- NOTE | 2020-07-23 10:05 | NUR ---
GPS: Nursing Notes: Bilateral Edema of Feet: Dr. Ayers informed of bilateral edema of feet +2, no further orders were given, continue to monitor for safety, continue with treatment plan.
--- NOTE | 2020-07-23 10:30 | NUR ---
GPS: RECEIVE A PHONE CALL FROM PATIENT DAUGHTER ASKING FOR FACETIME, ASSISTED FACETIME CALL WITH THE PATIENT , PATIENTS DAUGHTER AND ON THE OTHER SIDE TRYING TO TALK ON FACETIME, HOWEVER PATIENT NOT RESPONDING , JUST MOVING BUT NOT REPLYING TO THE CALL, FAMILY GETS UPSET AND VERBALLY ATTACK THE STUDENT ADMISSIONS CLERK, AND SAYS THAT NOBODY FROM THE HOSPITAL MADE CONTACT WITH THEM ABOUT THE PATIENTS CONDITION, TOLD FAMILY TTHAT THE DOCTOR WILL MAKE CONTACT WITH THEM SOON POSSIBLE, PATIENT CALLED BACK TO [facility], NOTED THAT DEBUG TECHNICIAN HAVE BEEN IN CONTACT WITH PATIENTS ALL THRU OUT AND WAS DOCUMENTED , WILL CONTINUE FOLLOW UP
[2020-07-23] MEDS: LORAZEPAM 1 MG TABLET PO PRN (11:01)
[2020-07-23] MEDS ORDERED: IV D5 1/2 NS 1000 ML 1,000 ML IV PRN (12:45)
--- NOTE | 2020-07-23 17:12 | NUR ---
GPS: Nursing Notes: Patient's want to be contacted by physicians: Dr. Ayers was text by MAGDY Orozco, to call Mervat at and Dr. Lees called and stated that he called patient's yesterday and she did not cotton picker the phone. Stated that he is not going to call her today because this is his weekend off.
--- NOTE | 2020-07-23 20:15 | NUR ---
Received patient in his room in bed. He is noted with initial V/S of B/P 96/57mmHg, pulse 86bpm, respiration 18 breaths per min. temp. 97.1F, O2 Sat. 88%. patient noted arousable, responsive, in no acute distress with no changes in LOC. Patient was reposition, HOB was elevated to 45 degrees. then V/S were rechecked with V/S: B/P 97/66, pulse 92; resp. 18, and O2Sat 92%. Dr Ayers was notified and new order obtain to administer O2 therapy via nasal cannula if O2 sat goes below 90% and to obtained a sitter. will continue to monitor closely.
[2020-07-23] MEDS: SIMVASTATIN 10 MG TABLET PO SCH (21:00)
[2020-07-23] MEDS: ALFUZOSIN HCL 10 MG TAB.SR.24H PO SCH (21:00)
[2020-07-23] MEDS: DUTASTERIDE 0.5 MG CAPSULE PO SCH (21:00)
--- NOTE | 2020-07-23 21:15 | NUR ---
Patient noted responsive in no acute distress with no changes in LOC. Continue with HOB elevated, V/S: B/P 116/68; pulse 102 respiration 18, and O2 Sat 95%. will continue to monitor closely.
--- NOTE | 2020-07-23 22:00 | NUR ---
Patient refused all his QHS medication. will continue to monitor.
[2020-07-24 00:39] VITALS: BP 130/71
[2020-07-24 02:06] VITALS: BP 109/66
[2020-07-24 03:25] VITALS: BP 105/62
--- NOTE | 2020-07-24 03:27 | NUR ---
PATIENT NOTED SLEEPING. HE IS IN NO ACUTE DISTRESS, V/S HAVE BEEN STABLE AT THIS TIME. WILL CONTINUE TO MONITOR.
[2020-07-24 04:33] VITALS: BP 109/77
[2020-07-24 05:50] VITALS: BP 119/75
--- NOTE | 2020-07-24 06:52 | NUR ---
Patient slept for approx. 10 hrs through the night. V/S continue stable, pt continue responsive, in no acute distress and no changes in LOC. Bed bad given. will continue to monitor.
[2020-07-24 07:30] VITALS: BP 125/77
[2020-07-24 07:30] LABS: CARBON DIOXIDE 27 mmol/L (21-32); CHLORIDE 118 mmol/L (98-107); CREATININE 2.1 mg/dL (0.6-1.3); GLUCOSE 138 mg/dL (74-106); POTASSIUM 4.4 mmol/L (3.5-5.1); UREA NITROGEN, BLOOD 58 mg/dL (7-18)
[2020-07-24] MEDS: Z GUARD REMEDY PASTE 57 GM TUBE TOP SCH (08:37)
[2020-07-24] MEDS: risperiDONE 2 MG TABLET PO SCH (09:17)
[2020-07-24] MEDS: DIVALPROEX SPRINKLE 125 MG CAP.SPRINK PO SCH (09:17)
[2020-07-24] MEDS: CLONAZEPAM 0.5 MG TABLET PO SCH (09:17)
[2020-07-24] MEDS: RIVASTIGMINE TARTRATE 3 MG CAPSULE PO SCH (09:17)
[2020-07-24] MEDS: ENSURE WITH FIBER 237 ML LIQUID (CHOCOLATE) PO SCH (09:18)
[2020-07-24 09:22] LABS: BASOPHILS % (AUTO) 0.2 % (0.0-2.0); HEMATOCRIT 41.1 % (36.7-47.1); HEMOGLOBIN 13.4 g/dL (12.5-16.3); LYMPHOCYTES # (AUTO) 0.9 K/uL (20.0-40.0); LYMPHOCYTES % (AUTO) 7.6 % (20.5-51.5); MEAN CORPUSCULAR HEMOGLOBIN 29.9 uug (23.8-33.4); MEAN CORPUSCULAR HGB CONC 33 g/dL (32.5-36.3); MONOCYTES # (AUTO) 1.2 K/uL (2.0-10.0); MONOCYTES % (AUTO) 9.7 % (0.0-11.0); NEUTROPHILS # (AUTO) 10.3 K/uL (1.8-8.9); NEUTROPHILS % (AUTO) 82.5 % (38.5-71.5); PLATELET COUNT (AUTO) 189 K/uL (152-348); RED BLOOD CELL COUNT(AUTO) 4.47 MIL/uL (4.06-5.63); WHITE BLOOD COUNT (AUTO) 12.5 K/uL (3.6-10.2)
--- NOTE | 2020-07-24 10:30 | NUR ---
GPS: Nursing Notes: Discharge Notes: Patient is responding to his name only, discharge to Med. Surg. Room # 303, [facility] with a Dx: RAVEN per Dr. Ayers and Dr. Santiago agreed and discontinue 5250, right wrist HL continue to be patent, V/S: 125/77, 97.6, 103, 18, 95%, 0/10, denies any SI/HI, denies any AH/VH, denies any discomfort or pain at this time, denies any SOB, report given to Nisha-MAGDY, took his belongings with him, his Mervat was notify by charge nurse at , escorted to room # 303 by staff.
[2020-07-24] MEDS ORDERED: MAG355OR18 PO (11:59)
[2020-07-24] MEDS ORDERED: ACET-2154 PO (11:59)
[2020-07-24] MEDS ORDERED: RISP2TAB5 PO (11:59)
[2020-07-24] MEDS ORDERED: CLON0.5T PO (11:59)
[2020-07-24] MEDS ORDERED: RIVA3CAP17 PO (11:59)
[2020-07-24] MEDS ORDERED: LORA-259 PO (11:59)
[2020-07-24] MEDS ORDERED: LACT-246 PO (11:59)
[2020-07-24] MEDS ORDERED: ZINC113P3 TP (11:59)
[2020-07-24] MEDS ORDERED: SIMV10TA98 PO (11:59)
[2020-07-24] MEDS ORDERED: DIVA125C2 PO (11:59)
[2020-07-24] MEDS ORDERED: TEMA7.5C PO (11:59)
[2020-07-24] MEDS ORDERED: MAGN400O6 PO (11:59)
--- NOTE | 2020-07-25 09:47 | NUR ---
SW GPS Transfer Note and Discharge Plan Pt's was planned for discharge today via [facility] home [address] [place] [address]. Pts , Caroline [phone] has been notified. Pts mood is labile with congruent affect. Pt is alert and oriented x1 to self and requires total assistance with ADL's. Pt remains confused, disorganized and disoriented due to Dementia. Pt will be referred to [facility] [address] [place] [address], [place] [address] ([phone]) after being seen by his primary physician Dr. Quesada. Pt will follow up with Assistant Account Manager: Dr. Kyrie Quesada at [address] [address] ([phone]) and has an appointment scheduled on July 26, 2020 at 10am. The multidisciplinary exit care form was done, printed, signed, and given to the patient.
== END 2020-07-24 10:15 | disposition short-term general hospital (02) | DRG 885 ==
LOC: ER 22:29 → GPS 23:24
PROVIDERS: ADMIT Psychiatry & Neurology Psychiatry; ATTEND Registered Nurse
DX: F29 Unspecified psychosis not due to a substance or known physiological condition (principal); N17.0 Acute kidney failure with tubular necrosis; N39.0 Urinary tract infection, site not specified; F02.81 Dementia in other diseases classified elsewhere, unspecified severity, with behavioral disturbance; D68.69 Other thrombophilia; E87.0 Hyperosmolality and hypernatremia; G30.9 Alzheimer's disease, unspecified; E86.0 Dehydration; E78.5 Hyperlipidemia, unspecified; F39 Unspecified mood [affective] disorder; Z73.6 Limitation of activities due to disability; R73.03 Prediabetes; E86.1 Hypovolemia; N40.1 Benign prostatic hyperplasia with lower urinary tract symptoms; B96.89 Other specified bacterial agents as the cause of diseases classified elsewhere
CPT/HCPCS: 36415; 80164; 83735; 84100; 84443; 85025; A4663; J2358; J3490; J7030; J8499

== ENCOUNTER 2020-07-24 10:58 | Inpatient (IN) | payer OTHER ==
[~2020-07-24] VITALS: Ht 195.6 cm; Wt 79.9 kg
[~2020-07-24 10:58] MED LIST: ALFU10TA10 PO; DUTA0.5C PO; SULF1TAB48 PO
--- NOTE | 2020-07-24 11:00 | NUR ---
ADMITTED DIRECTLY FROM MHU TO ROOM 303 A 75 YO MALE WITH ADM DX OF ARF. VERY LETHARGIC BUT ABLE TO MOVE BOTH UPPER AND LOWER EXTREMITIES TO TOUCH, WEAKER ON THE LEFT ARM. O2 SAT 82% ON RM. PLACED ON O2 3 L SATURATION WENT UP TO 97%. BS 130. BP 127/60, HR 107, RR 18. WILL NOTIFY DR CAMEJO FOR ORDERS
[2020-07-24 11:45] VITALS: BP 123/96
[2020-07-24] MEDS ORDERED: ZINC113P3 TP (11:59)
[2020-07-24] MEDS ORDERED: DIVA125C2 PO (11:59)
[2020-07-24] MEDS ORDERED: LACT-246 PO (11:59)
[2020-07-24] MEDS ORDERED: MAG355OR18 PO (11:59)
[2020-07-24] MEDS ORDERED: TEMA7.5C PO (11:59)
[2020-07-24] MEDS ORDERED: RIVA3CAP17 PO (11:59)
[2020-07-24] MEDS ORDERED: CLON0.5T PO (11:59)
[2020-07-24] MEDS ORDERED: ACET-2154 PO (11:59)
[2020-07-24] MEDS ORDERED: SIMV10TA98 PO (11:59)
[2020-07-24] MEDS ORDERED: RISP2TAB5 PO (11:59)
[2020-07-24] MEDS ORDERED: LORA-259 PO (11:59)
[2020-07-24] MEDS ORDERED: MAGN400O6 PO (11:59)
[2020-07-24] MEDS ORDERED: TEMAZEPAM 7.5 MG CAPSULE PO PRN (13:00)
[2020-07-24] MEDS: NEPRO (VANILLA) 237 ML CAN PO SCH ×2 (13:00→16:29)
[2020-07-24] MEDS: CLONAZEPAM 0.5 MG TABLET PO SCH ×2 (13:00→16:29)
[2020-07-24] MEDS ORDERED: LORAZEPAM 1 MG TABLET PO PRN (13:00)
[2020-07-24] MEDS ORDERED: ACETAMINOPHEN 325 MG TABLET PO PRN (13:00)
[2020-07-24] MEDS: IV 1/2NS 1000 ML 1,000 ML IV PRN ×2 (13:40→22:04)
--- NOTE | 2020-07-24 14:41 | NUR ---
SEEN BY Mansi GOEL DNP FOR ADMISSION SEE ORDERS. CT HEAD W/O CONTRAST DONE. AWAITING RESULTS
[2020-07-24 16:10] VITALS: BP 113/65
[2020-07-24] MEDS: DIVALPROEX SPRINKLE 125 MG CAP.SPRINK PO SCH ×2 (16:28→21:00)
[2020-07-24] MEDS: RIVASTIGMINE TARTRATE 3 MG CAPSULE PO SCH (16:29)
--- NOTE | 2020-07-24 16:29 | NUR ---
all po meds not given patient still very lethargic MD aware continue with ivf as ordered
--- NOTE | 2020-07-24 18:46 | NUR ---
medicated x1 with norco for abdominal pain with good relief Addendum: 07/24/20 at 1847 by TOMMY GROVES RN CHARTED ERROR
--- NOTE | 2020-07-24 18:48 | NUR ---
NO CHANGE FROM BASELINE ASSESSMENT, CONTINUE WITH IVF AT 125MLS/HR, ST AT 103-107 RATE ON MONITOR
[2020-07-24 20:05] VITALS: BP 115/74
[2020-07-24 20:52] LABS: *BILIRUBIN,URIN NEGATIVE (NEGATIVE); *CLARITY,URINE CLEAR (CLEAR); *COLOR,URINE DARK YELLOW (YELLOW); *KETONES,URINE TRACE (NEGATIVE); *UROBILINOGEN,URINE 0.2 E.U./dl (NORMAL); LEUKOCYTE ESTERASE ,URINE NEGATIVE (NEGATIVE); NITRITE, URINE NEGATIVE (NEGATIVE); PH,URINE 6.5 (5.0-8.0); UGLUCOSE NEGATIVE (NEGATIVE)
[2020-07-24 20:54] LABS: *BLOOD, URINE TRACE INTACT (NEGATIVE)
[2020-07-24 20:59] LABS: *CREATININE,URINE 148.2 mg/dL (30-125)
[2020-07-24] MEDS: DUTASTERIDE 0.5 MG CAPSULE PO SCH (21:00)
[2020-07-24] MEDS: SIMVASTATIN 10 MG TABLET PO SCH (21:00)
[2020-07-24] MEDS: ALFUZOSIN HCL 10 MG TAB.SR.24H PO SCH (21:00)
[2020-07-24] MEDS: risperiDONE 2 MG TABLET PO SCH (21:00)
[2020-07-24] MEDS: Z GUARD REMEDY PASTE 57 GM TUBE TOP SCH (21:15)
[2020-07-24] MEDS: HEPARIN SODIUM,PORCINE 5,000 UNITS/ML VIAL SQ SCH (21:28)
--- NOTE | 2020-07-24 23:25 | NUR ---
Patient presented with a sudden onset tachycardia that began in SVT but changed to uncontrolled a-fib with rvr. Called and spoke to Dr. Antonio. Order for 5mg Cardizem IVP x1 now.
[2020-07-24] MEDS ORDERED: DILTIAZEM HCL 25 MG IV IV ONE (23:30)
--- NOTE | 2020-07-24 23:50 | NUR ---
Cardizem IVP not effective. HR remains 160-170s. Called Dr. Anotnio again. Order to start Amiodarone drip.
[2020-07-25] VITALS (20 sets, daily range): BP systolic 95–127; BP diastolic 48–66
[2020-07-25] MEDS ORDERED: AMIODARONE HCL IV 150 MG in IV DEXTROSE 5% 100 ML IV ONE (00:15)
[2020-07-25] MEDS ORDERED: AMIODARONE HCL 150 MG/3 ML VIAL IV ONE ×2 (00:23)
[2020-07-25] MEDS ORDERED: AMIODARONE HCL IV 900 MG in IV DEXTROSE 5% 482 ML IV PRN (00:25)
--- NOTE | 2020-07-25 00:50 | NUR ---
Amiodarone protocol initiated. 150mg to be given in bolus over 10 minutes. then 1mg/min over 6 hours then 0.5mg/min over 18 hours
--- NOTE | 2020-07-25 01:00 | NUR ---
Amiodarone 150mg bolus complete. No change in heart rate. 1mg/min drip started.
--- NOTE | 2020-07-25 04:00 | NUR ---
Spoke with Radha Moreira NP and gave report on current situation and steps taken to this point. Informed her that the patient had not converted to a stable rhythm. She stated that Dr Leigh would have to get involved with this case and cardioversion would most likely need to be done. Amiodarone drip to be continued as ordered. 5 minutes after this call at 0400, the patient converted to a normal sinus rhythm with HR in the 80s. Amiodarone drip being continued.
[2020-07-25 05:07] LABS: BACTERIA,URINE NONE SEEN /HPF (NONE SEEN); SQUAMOUS EPITHELIAL CELL,UR FEW /HPF (NONE SEEN); WBC,URINE 0-3 /HPF (0-3)
--- NOTE | 2020-07-25 06:00 | NUR ---
Spoke with the Caroline. She was apprised of the patient's condition. She also informed me that the patient does have an advanced directive that has him as a No Code. I explained she needs to get us that document, because without it he is considered a Full Code. She stated she is not in possession of the document, but she would try to obtain it. I provided her with the unit fax number so she can fax it to us when she has it.
[2020-07-25] MEDS: IV 1/2NS 1000 ML 1,000 ML IV PRN (06:25)
[2020-07-25 06:48] LABS: BASOPHILS % (AUTO) 0.1 % (0.0-2.0); HEMATOCRIT 38.7 % (36.7-47.1); HEMOGLOBIN 12.5 g/dL (12.5-16.3); LYMPHOCYTES % (AUTO) 8.3 % (20.5-51.5); MEAN CORPUSCULAR HEMOGLOBIN 30.1 uug (23.8-33.4); MEAN CORPUSCULAR HGB CONC 32 g/dL (32.5-36.3); MEAN CORPUSCULAR VOLUME 93.1 fL (73.0-96.2); MONOCYTES # (AUTO) 1.4 K/uL (2.0-10.0); MONOCYTES % (AUTO) 11.2 % (0.0-11.0); NEUTROPHILS # (AUTO) 9.8 K/uL (1.8-8.9); NEUTROPHILS % (AUTO) 80.4 % (38.5-71.5); PLATELET COUNT (AUTO) 179 K/uL (152-348); RED BLOOD CELL COUNT(AUTO) 4.15 MIL/uL (4.06-5.63); WHITE BLOOD COUNT (AUTO) 12.2 K/uL (3.6-10.2)
[2020-07-25 06:55] LABS: ALANINE AMINOTRANSFERASE 54 U/L (16-63); ALKALINE PHOSPHATASE 50 U/L (50-136); ASPARTATE AMINOTRANSFERASE 50 U/L (15-37); BILIRUBIN,TOTAL 0.7 mg/dL (0.2-1.0); CARBON DIOXIDE 30 mmol/L (21-32); CHLORIDE 119 mmol/L (98-107); CREATINE KINASE, TOTAL 894 U/L (39-308); GLUCOSE 141 mg/dL (74-106); MAGNESIUM 2.6 mg/dL (1.8-2.4); PHOSPHOROUS 3.8 mg/dL (2.5-4.9); POTASSIUM 4.1 mmol/L (3.5-5.1); TOTAL PROTEIN, SERUM 6.4 g/dL (6.4-8.2)
[2020-07-25 07:20] LABS: UREA NITROGEN, BLOOD 58 mg/dL (7-18)
--- NOTE | 2020-07-25 07:30 | NUR ---
Obtunded, some movement with verbal and painful stimuli. O2 at 6L/mask at 94% O2 sat. Amiodarone drip at 0.5 mg/min. Tele SR 85.
[2020-07-25] MEDS: NEPRO (VANILLA) 237 ML CAN PO SCH ×3 (09:00→16:50)
[2020-07-25] MEDS: DIVALPROEX SPRINKLE 125 MG CAP.SPRINK PO SCH ×3 (09:00→21:00)
[2020-07-25] MEDS: risperiDONE 2 MG TABLET PO SCH ×2 (09:00→21:00)
[2020-07-25] MEDS ORDERED: AMIODARONE HCL IV 450 MG in IV DEXTROSE 5% 250 ML IV PRN (09:00)
[2020-07-25] MEDS: CLONAZEPAM 0.5 MG TABLET PO SCH ×3 (09:00→16:50)
[2020-07-25] MEDS: RIVASTIGMINE TARTRATE 3 MG CAPSULE PO SCH ×2 (09:00→16:50)
[2020-07-25] MEDS: HEPARIN SODIUM,PORCINE 5,000 UNITS/ML VIAL SQ SCH ×2 (09:47→20:38)
[2020-07-25] MEDS: Z GUARD REMEDY PASTE 57 GM TUBE TOP SCH ×2 (09:48→20:39)
--- NOTE | 2020-07-25 09:50 | NUR ---
SW GPS Transfer Note and Discharge Plan Pt's was planned for discharge today via [facility] Transportation home [address] [place] [address]. Pts , Caroline [phone] has been notified. Pts mood is labile with congruent affect. Pt is alert and oriented x1 to self and requires total assistance with ADL's. Pt remains confused, disorganized and disoriented due to Dementia. Pt will be referred to [facility] [address] [place] [address], [place] [address] ([phone]) after being seen by his primary physician Dr. Quesada. Pt will follow up with Full Decator Operator: Dr. Kyrie Quesada at [address] [address] ([phone]) and has an appointment scheduled on July 26, 2020 at 10am. The multidisciplinary exit care form was done, printed, signed, and given to the patient.
--- NOTE | 2020-07-25 10:00 | NUR ---
Sponge bath given. Repositioned comfortably.
[2020-07-25] MEDS ORDERED: IPRATROPIUM BROMIDE 0.5 MG/2.5 ML NEBU NEB PRN (10:45)
[2020-07-25] MEDS: ACETYLCYSTEINE 20% 800 MG/4 ML VIAL NEB SCH ×3 (10:45→23:30)
[2020-07-25] MEDS: IV D5 1/2 NS 1000 ML 1,000 ML IV PRN ×2 (11:41→20:37)
--- NOTE | 2020-07-25 12:00 | NUR ---
Secretions suctioned orally and both nasal with moderate secretions. Oral care done. ABG done. Better airway 100% O2 sat with 6L/mask
[2020-07-25 12:15] LABS: ABG BASE EXCESS 2.3 mmol/L; ABG HCO3 25.2 mmol/L; ABG PCO2 33.7 mmHg (35.0-45.0); ABG PH 7.492 (7.350-7.450); ABG PO2 80.7 mmHg (75.0-100.0); ABG SITE RIGHT RADIAL; COHb 0.9 % (0.5-1.5); MetHb 0.1 % (0.0-1.5); O2Hb 94.8 % (94.0-97.0)
[2020-07-25] MEDS: ALBUTEROL SULFATE 2.5 MG/ 0.5 ML NEBU NEB PRN (14:30)
--- NOTE | 2020-07-25 15:00 | NUR ---
O2 sat 100%, O2 decreased to 4L/mask with O2 sat of 94-96%
--- NOTE | 2020-07-25 18:15 | NUR ---
Secretions suctioned oral and nasal. oral care. Repositioned comfortably. Kept dry and comfortable
--- NOTE | 2020-07-25 19:20 | NUR ---
Received patient lying in bed. Asleep, obtunded, non-verbal. No behavioral issues noted at this time. On O2 at 4LPM via mask in place. No signs or symptoms of pain or SOB noted. IV site on right hand and right FA intact and patent. IVF infusing. Calvillo catheter intact and draining via gravity. Safety measure initiated and call devine within reached. Addendum: 07/26/20 at 0331 by JOCELIN HERRERA RN NSR on tele at 62/min.
--- NOTE | 2020-07-25 20:58 | NUR ---
Patient woke up and became very restless, disrobing, trying to pull out lines and anxious. Patient is NPO at this time. Informed Leona Antonio NP with order to give patient Haldol 2.5mg IVx1. Order verified. Will carry out order.
[2020-07-25] MEDS: SIMVASTATIN 10 MG TABLET PO SCH (21:00)
[2020-07-25] MEDS: DUTASTERIDE 0.5 MG CAPSULE PO SCH (21:00)
[2020-07-25] MEDS: ALFUZOSIN HCL 10 MG TAB.SR.24H PO SCH (21:00)
[2020-07-25] MEDS ORDERED: HALOPERIDOL LACTATE 5 MG/1 ML VIAL IVP ONE (21:00)
[2020-07-26] VITALS: BP 123/78
[2020-07-26 04:00] VITALS: BP 142/68
[2020-07-26] MEDS: IV D5 1/2 NS 1000 ML 1,000 ML IV PRN ×2 (06:06→14:59)
[2020-07-26 06:07] LABS: BASOPHILS % (AUTO) 0.1 % (0.0-2.0); EOSINOPHILS % (AUTO) 0.1 % (0.0-7.0); HEMATOCRIT 37.7 % (36.7-47.1); HEMOGLOBIN 12.5 g/dL (12.5-16.3); LYMPHOCYTES # (AUTO) 1.2 K/uL (20.0-40.0); LYMPHOCYTES % (AUTO) 11.3 % (20.5-51.5); MEAN CORPUSCULAR HEMOGLOBIN 30.5 uug (23.8-33.4); MEAN CORPUSCULAR HGB CONC 33 g/dL (32.5-36.3); MEAN CORPUSCULAR VOLUME 92.5 fL (73.0-96.2); MONOCYTES # (AUTO) 1.1 K/uL (2.0-10.0); MONOCYTES % (AUTO) 10.2 % (0.0-11.0); NEUTROPHILS # (AUTO) 8.7 K/uL (1.8-8.9); NEUTROPHILS % (AUTO) 78.3 % (38.5-71.5); PLATELET COUNT (AUTO) 171 K/uL (152-348); RED BLOOD CELL COUNT(AUTO) 4.08 MIL/uL (4.06-5.63); WHITE BLOOD COUNT (AUTO) 11.1 K/uL (3.6-10.2)
[2020-07-26 06:20] LABS: CREATININE 1.2 mg/dL (0.6-1.3); MAGNESIUM 2.3 mg/dL (1.8-2.4); PHOSPHOROUS 2.1 mg/dL (2.5-4.9); POTASSIUM 3.5 mmol/L (3.5-5.1)
--- NOTE | 2020-07-26 06:24 | NUR ---
Patient asleep at this time. Able to mumble some word when spoken to. Remains confused and disoriented. Calm and relax at this time. On O2 at 4LPM via mask in place. No signs or symptoms of pain or SOB noted. Suctioned secretions PRN and able to obtain small amount of thick brown discharge. Oral care rendered. HOB kept elevated. IV site on right hand and right FA intact and patent. IVF infusing. NSR on tele at 91/min. Calvillo catheter intact and draining via gravity. With krista color urine. Safety measure maintained and call devine within reached.
[2020-07-26] MEDS: ALBUTEROL SULFATE 2.5 MG/ 0.5 ML NEBU NEB PRN ×3 (07:46→21:33)
[2020-07-26] MEDS: ACETYLCYSTEINE 20% 800 MG/4 ML VIAL NEB SCH ×3 (07:46→21:33)
--- NOTE | 2020-07-26 07:50 | NUR ---
RT is here and says that patient cannot be on less than 6 L if he is on face mask therapy. Adjusted oxygen Accordingly. Patient is now on 6 L face mask oxygen therapy saturating at 99%. Will continue to monitor
[2020-07-26] MEDS ORDERED: NEUTRA PHOS PACKET PO ONE (08:00)
[2020-07-26] MEDS: RIVASTIGMINE TARTRATE 3 MG CAPSULE PO SCH ×2 (08:03→17:00)
[2020-07-26] MEDS: NEPRO (VANILLA) 237 ML CAN PO SCH ×3 (08:03→17:00)
[2020-07-26] MEDS: DIVALPROEX SPRINKLE 125 MG CAP.SPRINK PO SCH ×4 (08:03→21:22)
[2020-07-26] MEDS: CLONAZEPAM 0.5 MG TABLET PO SCH ×3 (08:03→17:00)
[2020-07-26] MEDS: risperiDONE 2 MG TABLET PO SCH ×3 (08:04→21:22)
[2020-07-26] MEDS: HEPARIN SODIUM,PORCINE 5,000 UNITS/ML VIAL SQ SCH (08:37)
[2020-07-26] MEDS: Z GUARD REMEDY PASTE 57 GM TUBE TOP SCH ×2 (08:37→21:23)
[2020-07-26 10:19] LABS: A/G RATIO 0.8 (0.7-1.7); ALBUMIN 2.7 g/dL (2.9-4.4); ALPHA-1-GLOBULIN 0.4 g/dL (0.0-0.4); ALPHA-2-GLOBULIN 0.8 g/dL (0.4-1.0); GAMMA GLOBULIN 1.1 g/dL (0.4-1.8); GLOBULIN, TOTAL 3.2 g/dL (2.2-3.9); M-SPIKE Not Observed g/dL (Not Observed)
[2020-07-26 11:40] VITALS: BP 109/68
--- NOTE | 2020-07-26 12:00 | NUR ---
Received patient resting in bed, he is dozing intermittently. Patient is on 4 L oxygen face mask. Patient is restless and uncooperative. He is trying to pull out his Calvillo and IV lines. Will try redirecting, reorienting and and distracting patient. IV is on the right forearm 20 gauge running D5 1/2 NS at 125 mls/hr, he also has a right hand 20 gauge. Safety precautions in place, will continue to monitor.
[2020-07-26 16:00] VITALS: BP 132/70
[2020-07-26] MEDS ORDERED: SODIUM PHOSPHATE MM 15 MMOL in IV NORMAL SALINE 250 ML IV ONE (17:00)
--- NOTE | 2020-07-26 18:10 | NUR ---
Patient has secretions that he spit on the bed. Upon assessment i realized he was bleeding in his mouth. Made MD aware and recommended heparin be stopped. MD gave order to stop heparin. Will continue to monitor.
--- NOTE | 2020-07-26 18:55 | NUR ---
Made MD aware that patient has bleeding in his mouth and some hematuria from observation of his Calvillo. MD is aware and gave order not to give patient any sedatives over the night. Will pass onto the polygraph technician. performed oral care for patient to remove excess secretions from his mouth. Stopped heparin per MD order. Will continue to monitor and endorse to oncoming nurse.
--- NOTE | 2020-07-26 19:40 | NUR ---
came onto shift patient was half way out of the bed, IV line was pulled out on right FA and right hand IV was infiltrated, mittens were chewed on and on the floor, NC was in patients mouth, and fowler catheter was pulled out. SPECIAL EDUCATION SUPERINTENDENT and RN cleaned up patient and new soft mittens on bilateral arms. After patient was taken care of morning RN gave date night sitter RN report and orders were received from SURGICAL PROCESSOR, brenda, for 1:1 sitter, pysch consult, and ativan 0.5 IVP one time only. will replace fowler, IVP and administer medication.
[2020-07-26] MEDS ORDERED: LORAZEPAM 2 MG/1 ML VIAL IV ONE (20:00)
[2020-07-26 20:12] VITALS: BP 133/68
--- NOTE | 2020-07-26 20:30 | NUR ---
ativan x1 IVP administered by night charge nurse. patient tolerated well.
[2020-07-26] MEDS: ALFUZOSIN HCL 10 MG TAB.SR.24H PO SCH ×2 (21:00→21:22)
[2020-07-26] MEDS: DUTASTERIDE 0.5 MG CAPSULE PO SCH ×2 (21:00→21:22)
[2020-07-26] MEDS: SIMVASTATIN 10 MG TABLET PO SCH ×2 (21:00→21:22)
[2020-07-26] MEDS ORDERED: ALBUMIN HUMAN 25% 0 ML ONE (21:47)
--- NOTE | 2020-07-26 23:00 | NUR ---
medications for adovart, depakote, risperidal, uroxatral and zocor wasted. patient was NPO and previous history patient was not receiving medications due to swallow precautions.
--- NOTE | 2020-07-27 04:37 | NUR ---
patient aaox1. unable to verbalize needs. patient with sitter 1:1 for safety. new fowler in place and intact and patent flowing via gravity. PIV on LFA and RAC intact and patent. soft mitten restraints on. NPO remains. fall precautions in place, bed in lowest position and side rails up x2. 5L NC. v/s stable and no acute distress noted. will continue to monitor and assess.
[2020-07-27 05:14] VITALS: BP 131/52
--- NOTE | 2020-07-27 05:15 | NUR ---
UA collected will send to lab.
[2020-07-27 06:45] LABS: BASOPHILS % (AUTO) 0.1 % (0.0-2.0); EOSINOPHILS # (AUTO) 0.3 K/uL (0.0-0.7); EOSINOPHILS % (AUTO) 3.2 % (0.0-7.0); HEMOGLOBIN 12.7 g/dL (12.5-16.3); LYMPHOCYTES # (AUTO) 1.2 K/uL (20.0-40.0); LYMPHOCYTES % (AUTO) 13.7 % (20.5-51.5); MEAN CORPUSCULAR HEMOGLOBIN 30.4 uug (23.8-33.4); MEAN CORPUSCULAR HGB CONC 33 g/dL (32.5-36.3); MEAN CORPUSCULAR VOLUME 91.4 fL (73.0-96.2); MONOCYTES # (AUTO) 0.7 K/uL (2.0-10.0); MONOCYTES % (AUTO) 7.9 % (0.0-11.0); NEUTROPHILS # (AUTO) 6.6 K/uL (1.8-8.9); NEUTROPHILS % (AUTO) 75.1 % (38.5-71.5); PLATELET COUNT (AUTO) 175 K/uL (152-348); RED BLOOD CELL COUNT(AUTO) 4.16 MIL/uL (4.06-5.63); WHITE BLOOD COUNT (AUTO) 8.8 K/uL (3.6-10.2)
[2020-07-27 07:06] LABS: BILIRUBIN,TOTAL 0.9 mg/dL (0.2-1.0); CREATININE 0.9 mg/dL (0.6-1.3); MAGNESIUM 2.1 mg/dL (1.8-2.4); POTASSIUM 3.5 mmol/L (3.5-5.1); TOTAL PROTEIN, SERUM 5.9 g/dL (6.4-8.2)
--- NOTE | 2020-07-27 07:30 | NUR ---
Received patient resting in bed. No sign of respiratory distress, patient is saturating well on 5 liters of oxygen at 99%. Patient has two IV access left forearm 22 gauge and right AC 22 gauge running D5 1/2 NS at 50mls per hour. Patient has a 1:1 sitter at this time and is NPO until he passes a swallow evaluation. Safety precautions in place, bed in the lowest position, locked and alarm activated. Will continue to monitor.
[2020-07-27] MEDS: ACETYLCYSTEINE 20% 800 MG/4 ML VIAL NEB SCH ×2 (08:08→15:33)
[2020-07-27] MEDS: ALBUTEROL SULFATE 2.5 MG/ 0.5 ML NEBU NEB PRN ×2 (08:08→15:33)
[2020-07-27] MEDS: NEPRO (VANILLA) 237 ML CAN PO SCH ×2 (09:00→13:00)
[2020-07-27] MEDS: RIVASTIGMINE TARTRATE 3 MG CAPSULE PO SCH (09:00)
[2020-07-27] MEDS: DIVALPROEX SPRINKLE 125 MG CAP.SPRINK PO SCH (09:00)
[2020-07-27] MEDS: risperiDONE 2 MG TABLET PO SCH (09:00)
[2020-07-27] MEDS: CLONAZEPAM 0.5 MG TABLET PO SCH ×2 (09:00→13:00)
[2020-07-27] MEDS: Z GUARD REMEDY PASTE 57 GM TUBE TOP SCH (09:29)
[2020-07-27 12:00] VITALS: BP 151/52
--- NOTE | 2020-07-27 12:08 | NUR ---
Speech therapy just did swallow evaluation and cleared patient for a pureed diet with aspiration precaution. Patient eats small amounts at a time. Spoke with Estelita home health care case manager and made her away. Will wait for order from [facility]. Will continue to monitor.
[2020-07-27] MEDS ORDERED: CLON0.5T4 PO (12:18)
--- NOTE | 2020-07-27 13:25 | NUR ---
Speech therapy came and evaluated the patient and put him on a pureed diet. Dietary sent up a tray and patient want unable to swallow. He pocked and then started choking on the single bite. Had to pry food from patient mouth and turn him sideways to help him bring it up and out. I called MD Yen and telehealth case manager Estelita to let them know that upon my assessment patient is still unable to swallow. Medications due not administered because of patient's inability to swallow. Will continue to monitor.
[2020-07-27 14:04] VITALS: BP 126/63
--- NOTE | 2020-07-27 17:00 | NUR ---
PCAT INSTRUCTOR reported that patient had a small bowel movement.
--- NOTE | 2020-07-27 17:01 | NUR ---
Patient was discharged to home and picked up by ambulance. Patient Calvillo was DC per [facility] and both IV lines were removed along with wristband. All patient's belongings were sent with patient as well as paperwork. Will call and give report to Mervat.
--- NOTE | 2020-07-27 17:12 | NUR ---
Spoke with Mervat and gave her discharge instructions. Also told her that the packet will come home with him with discharge instructions.
== END 2020-07-27 17:00 | disposition hospice, home (50) | DRG 682 ==
LOC: MEDSURG3 10:58 → TELE3 11:05 → TELE-TD3 23:34 → TELE3 07-25 11:05 → MEDSURG3 07-26 07:50
PROVIDERS: ADMIT Nurse Practitioner Acute Care; ATTEND Nurse Practitioner Acute Care
DX: N17.0 Acute kidney failure with tubular necrosis (principal); G93.41 Metabolic encephalopathy; J96.01 Acute respiratory failure with hypoxia; E87.0 Hyperosmolality and hypernatremia; D68.69 Other thrombophilia; E44.1 Mild protein-calorie malnutrition; F23 Brief psychotic disorder; N13.8 Other obstructive and reflux uropathy; G30.9 Alzheimer's disease, unspecified; F02.80 Dementia in other diseases classified elsewhere, unspecified severity, without behavioral disturbance, psychotic disturbance, mood disturbance, and anxiety; Z66 Do not resuscitate; E86.1 Hypovolemia; F29 Unspecified psychosis not due to a substance or known physiological condition; D72.829 Elevated white blood cell count, unspecified; E88.09 Other disorders of plasma-protein metabolism, not elsewhere classified; Z68.20 Body mass index [BMI] 20.0-20.9, adult; I48.91 Unspecified atrial fibrillation; N40.1 Benign prostatic hyperplasia with lower urinary tract symptoms; R73.03 Prediabetes; Z87.440 Personal history of urinary (tract) infections
CPT/HCPCS: 36415; 36600; 70450; 71045; 76770; 83735; 83970; 84100; 84155; 84156; 84165; 84300; 85025; 93005; 93307; 94640; 94664; A4217; C1758; G0378; J0282; J1630; J1644; J2060; J3490; J3590; J7050; J7060; J8499; P9047